=== PATIENT | male | born 1935 | race Caucasian/White ===

== ENCOUNTER 2019-05-28 14:22 | Inpatient (IN) | payer MEDICARE, OTHER ==
[~2019-05-28] VITALS: Ht 167.6 cm; Wt 60.3 kg
[~2019-05-28 14:22] MED LIST: ALPR0.25 PO; ASPI-1169 PO; ATOR80TA PO; CLOP75TA15 PO; FERR325T24 PO; PANT40TA2 PO
--- NOTE | 2019-05-28 14:36 | NUR ---
[facility] CALLED, SPOKE WITH DIDIER PINTO, CODE STEMI CALLED BY DR COULTER
[2019-05-28] MEDS ORDERED: ASPIRIN 81 MG TAB.CHEW ONE ×2 (14:37→14:49)
[2019-05-28] MEDS ORDERED: NITROGLYCERIN 0.4 MG/TAB BOTTLE ONE (14:38)
[2019-05-28] MEDS ORDERED: RIVA10TA PO (14:39)
[2019-05-28] MEDS ORDERED: MULT-24 PO (14:39)
[2019-05-28] MEDS ORDERED: ALPR0.5T8 PO (14:39)
[2019-05-28] MEDS ORDERED: ALPR0.255 PO (14:39)
[2019-05-28] MEDS ORDERED: ONDANSETRON HCL/PF 4 MG/2 ML VIAL ONE (14:44)
[2019-05-28 14:45] LABS: BASOPHILS # (AUTO) 0.1 /CMM (0.0-0.2); BASOPHILS % (AUTO) 0.8 % (0.0-2.0); EOSINOPHILS % (AUTO) 1.4 % (0.0-6.0); HEMATOCRIT 53 % (39-51); HEMOGLOBIN 18.4 g/dL (13.5-17.5); LYMPHOCYTES % (AUTO) 40.6 % (20.0-44.0); MEAN CORPUSCULAR HGB CONC 35 g/dl (31.0-36.0); MEAN CORPUSCULAR VOLUME 94 fL (80-96); MONOCYTES # (AUTO) 0.9 /CMM (0.1-1.30); MONOCYTES % (AUTO) 12.5 % (2.0-12.0); NEUTROPHILS # (AUTO) 3.3 /CMM (1.8-8.9); NEUTROPHILS % (AUTO) 44.7 % (43.0-81.0); PLATELET COUNT (AUTO) 117 /CMM (150-450); WHITE BLOOD COUNT (AUTO) 7.4 K/uL (4.3-11.0)
--- NOTE | 2019-05-28 14:45 | NUR ---
[facility] RECIEVED FAX FOR CODE STEMI
--- NOTE | 2019-05-28 14:49 | NUR ---
PER [facility] RN, PRODUCE WRAPPER FELICITY MARSH PAGED, AWAITING CALL BACK Addendum: 05/28/19 at [address] FLORIAN
[2019-05-28 14:54] LABS: CARBON DIOXIDE 28 mmol/L (21-32); CHLORIDE 103 mmol/L (98-107); CREATININE 1.3 mg/dL (0.6-1.3); GLUCOSE 131 mg/dL (74-106); POTASSIUM 3.7 mmol/L (3.5-5.1); SODIUM SERUM 141 mmol/L (136-145); UREA NITROGEN, BLOOD 26 mg/dL (7-18)
--- NOTE | 2019-05-28 14:55 | NUR ---
DR COULTER SPEAKING WITH DR FLORIAN
[2019-05-28 15:00] LABS: ALANINE AMINOTRANSFERASE 19 U/L (12-78); ALBUMIN 3.9 g/dL (3.4-5.0); ALKALINE PHOSPHATASE 49 U/L (46-116); ASPARTATE AMINOTRANSFERASE 30 U/L (15-37); BILIRUBIN,DIRECT 0.2 mg/dL (0.0-0.2); BILIRUBIN,TOTAL 0.8 mg/dL (0.2-1.0); TOTAL PROTEIN, SERUM 6.9 g/dL (6.4-8.2)
[2019-05-28] MEDS ORDERED: NITROGLYCERIN 0.4 MG/TAB BOTTLE SL ONE (15:00)
[2019-05-28] MEDS ORDERED: ASPIRIN 325 MG TABLET PO ONE (15:00)
[2019-05-28] MEDS ORDERED: ONDANSETRON HCL/PF - ER 4 MG/2 ML VIAL IV ONE (15:00)
[2019-05-28 15:18] LABS: CALCIUM, SERUM 9.8 mg/dL (8.5-10.1)
--- NOTE | 2019-05-28 15:29 | NUR ---
CALLED DR. FABIANO PADRON [phone] OPTION 2, 2. PAGED.
--- NOTE | 2019-05-28 15:58 | NUR ---
PER DR PADRON ANSWERING SERVICE, WILL ATTEMPT TO REACH DR PADRON CELL PHONE AND CALL BACK
[2019-05-28 16:04] LABS: BAND % (MANUAL) 2 % (0.0-5.0); EOSINOPHILS % (MANUAL) 1 % (0-4); MONOCYTES % (MANUAL) 11 % (0-11.0); NEUTROPHILS % (MANUAL) 44 (42-76)
[2019-05-28 16:05] LABS: LYMPHOCYTES % (MANUAL) 42 % (16-48)
--- NOTE | 2019-05-28 16:34 | NUR ---
CALLED NURSING SUP FOR TELE BED
--- NOTE | 2019-05-28 16:38 | NUR ---
DR. TSANG RECEIVED A CALL BACK. Addendum: 05/28/19 at 1648 by ROALCANCES CORRECTION: RECEIVED A CALL BACK FROM DR. TSANG
--- NOTE | 2019-05-28 16:39 | NUR ---
REPEAT TROPONIN LEVEL.
--- NOTE | 2019-05-28 16:49 | NUR ---
CALLED FOOD SAFETY DIRECTOR FOR A BED.
[2019-05-28] MEDS ORDERED: MAG HYDROX/AL HYDROX/SIMETH 30 ML UDC ONE (17:33)
[2019-05-28] MEDS ORDERED: LIDOCAINE VISCOUS 2% UD 15 ML UDC ONE (17:33)
--- NOTE | 2019-05-28 17:45 | NUR ---
GIVEN REPORT TO JATIN PINTO FOR NAZ.
[2019-05-28] MEDS ORDERED: ALPRAZOLAM 0.5 MG TABLET PO SCH (18:00)
[2019-05-28] MEDS ORDERED: LIDOCAINE VISCOUS 2% UD 15 ML UDC MM ONE (18:00)
[2019-05-28] MEDS ORDERED: MAG HYDROX/AL HYDROX/SIMETH 30 ML UDC PO ONE (18:00)
--- NOTE | 2019-05-28 19:25 | NUR ---
ADMISSION NOTES: RECEIVED REPORT FROM JATIN PINTO. PT BROUGHT TO THE UNIT VIA GURNEY. PLACED COMFORTABLE IN BED. PT IS A/O X4, ON RA RESPIRATIONS EVEN AND UNLABORED. PT DENIES ANY CHEST PAIN, DIZZINESS, OR LIGHT HEADEDNESS. PT HAS 2 IV ACCESS IN PLACED, BOTH PATENT AND FLUSHING WELL, ON HL. PLACED ON TELE MONITORING, SINUS RHYTHM HR 79. ASSISTED TO BATHROOM, VOIDED FREELY. PT REFUSED USING URINAL, STATED HE'S NOT COMFORTABLE. INVENTORY OF BELONGINGS COMPLETED, PT USES BILATERAL HEARING AID. PROVIDED WITH CONTAINER WITH PT'S NAME ON IT/ID STICKER PLACED AT BED SIDE, PT STATED HE NORMALLY REMOVE THE IT PRIOR TO SLEEPING. VS TAKEN AND RECORDED. ORIENTED PT TO USE OF CALL LIGHT, HOURLY ROUNDING, POLICY AND VISITING HOURS. PT REQUESTED FOR NO PHONE CALLS TONIGHT HE WOULD LIKE TO SLEEP, STATED HE'S TIRED. UPON SKIN ASSESSMENT, NOTED DTI WITH NON BLANCHABLE REDNESS, ON TAILBONE AREA AND SACRAL, NOTED DRY SCAB ON SIDES, PT REFUSED FOR PHOTO TAKING AND TREATMENT, OFFERED MEPILEX, BUT REFUSED. EDUCATE PT WE HAVE WOUND CARE TEAM WHICH CAN PRESCRIBED NECESSARY TX, BUT PT REFUSED STATED HE GOT THIS FROM SITTING/LAYING LONG PERIODS OF TIME, AND IT'S NOT A CONCERN FOR HIM OF THE MOMENT. SAFETY PRECAUTIONS FOR FALL INITIATED, CALL LIGHT IN REACH, WILL CONTINUE MONITORING PT.
--- NOTE | 2019-05-28 19:32 | NUR ---
PT TRASNFERRED PER ACLS PROTOCOL
[2019-05-28 20:00] VITALS: BP 119/73
--- NOTE | 2019-05-28 20:26 | NUR ---
ADMIN OF XANAX AT 2025, AND NON ADMIN OF LIPITOR: PT ARRIVED TO [facility] AT 1925,PT STATED HE WOULD LIKE TO GET HIS XANAX NOW, HE NORMALLY TAKE IT AT NIGHT BEFORE HE GOES TO BED. STATED HE'S VERY TIRED AND WOULD LIKE TO SLEEP NOW. PER PT, HE TOOK ALL HIS AM MEDS THIS MORNING, INCLUDING LIPITOR. PT CLAIMED HE TOOK LIPITOR 80 MG EVERY MORNING.
--- NOTE | 2019-05-28 20:29 | NUR ---
RN NOTES: NOTED SACRAL AND TAILBONE REDNESS, NON BLANCHABLE, CRUSTED SCAB NOTED ON RIGHT BUTTOCKS AREA, PT REFUSED FOR PHOTOS
--- NOTE | 2019-05-28 21:25 | NUR ---
rn notes: notified dr gill regarding admitting orders, t/o to start pt on regular diet, and he will place orders. t/o read back, verified, carried out.
[2019-05-28] MEDS ORDERED: ATORVASTATIN 40 MG TABLET PO SCH (22:00)
[2019-05-28] MEDS ORDERED: IV NS 0.9% 1,000 ML IV PRN (23:10)
[2019-05-28] MEDS ORDERED: ONDANSETRON HCL/PF 4 MG/2 ML VIAL IVP PRN (23:30)
[2019-05-28] MEDS ORDERED: ACETAMINOPHEN 325 MG TABLET PO PRN (23:30)
[2019-05-28] MEDS ORDERED: MAG HYDROX/AL HYDROX/SIMETH 30 ML UDC PO PRN (23:30)
[2019-05-28] MEDS ORDERED: MAGNESIUM HYDROXIDE 30 ML UDC PO PRN (23:30)
[2019-05-28] MEDS ORDERED: Z GUARD REMEDY 2 OZ OINT TP PRN (23:30)
[2019-05-29] VITALS: BP 128/74
--- NOTE | 2019-05-29 01:01 | NUR ---
RN NOTES: PT CALLED STATED XANAX HE TOOK LAST NIGHT DOESNT HELP, HE'S STILL, OPT REQUESTING TO HAVE ANOTHER DOSE AT THIS TIME, EXPLAIN TO PT THAT BECAUSE HE TOOK A DOSE LAST NIGHT, MOST LIKELY HE COULDN'T GET ADDITIONAL DOSE AT THIS TIME, FOR HIS SAFETY AND THAT ITS LONG ACTING. BUT PT INSISTED, CONTACTED ACCOUNT MANAGEMENT ASSISTANT MD DR ROMERO, RELAYED THE SITUATION, PER MD NO ADDITIONAL DOSE FOR TONIGHT.
[2019-05-29 04:00] VITALS: BP 145/84
--- NOTE | 2019-05-29 06:38 | NUR ---
RN CLOSING NOTES: PT DENIES ANY CHEST PAIN OR DISCOMFORT THROUGHOUT THE SHIFT. IV ACCESS REMAINS PATENT AND FLUSHING WELL, INFUSING WITH IVF ORDERED. REMAINS ON FALL RISK. TELE MONITORING, SINUS RHYTHM HR 73. BILATERAL HEARING AID REMAINS IN CONTAINER AT BED SIDE. VS REMAINS STABLE, NEEDS ATTENDED. SAFETY PRECAUTIONS FOR FALL REMAINS ENGAGED, CALL LIGHT IN REACH, WILL ENDORSE TO DAY RN FOR CONTINUITY OF CARE.
[2019-05-29 07:04] LABS: BASOPHILS % (AUTO) 0.5 % (0.0-2.0); EOSINOPHILS % (AUTO) 0.8 % (0.0-6.0); HEMATOCRIT 50 % (39-51); LYMPHOCYTES # (AUTO) 1.1 /CMM (0.8-4.8); LYMPHOCYTES % (AUTO) 16.4 % (20.0-44.0); MEAN CORPUSCULAR HGB CONC 34 g/dl (31.0-36.0); MEAN CORPUSCULAR VOLUME 94 fL (80-96); MONOCYTES # (AUTO) 0.8 /CMM (0.1-1.30); MONOCYTES % (AUTO) 11.8 % (2.0-12.0); NEUTROPHILS # (AUTO) 4.7 /CMM (1.8-8.9); NEUTROPHILS % (AUTO) 70.5 % (43.0-81.0); PLATELET COUNT (AUTO) 102 /CMM (150-450); WHITE BLOOD COUNT (AUTO) 6.6 K/uL (4.3-11.0)
[2019-05-29 07:38] LABS: ALBUMIN 3.1 g/dL (3.4-5.0); BILIRUBIN,TOTAL 0.8 mg/dL (0.2-1.0); CALCIUM, SERUM 8.6 mg/dL (8.5-10.1); MAGNESIUM 2.1 mg/dL (1.8-2.4); PHOSPHORUS 2.8 mg/dL (2.5-4.9); POTASSIUM 3.8 mmol/L (3.5-5.1); TOTAL PROTEIN, SERUM 5.7 g/dL (6.4-8.2)
[2019-05-29 07:43] LABS: THYROID STIMULATING HORMONE 0.519 uIU/mL (0.358-3.74)
--- NOTE | 2019-05-29 07:45 | NUR ---
WAREHOUSE EXAMINER NOTES ON TELE MONITORING SR: 78
--- NOTE | 2019-05-29 07:45 | NUR ---
AIRCRAFT DELIVERY CHECKER OPENING NOTES RECEIVED PATIENT IN BED ASLEEP, AROUSABLE TO VERBAL AND TACTILE STIMULI. HOB ELEVATED. NO SOB. DENIES ANY C/O PAIN NOR DISCOMFORT. DENIES ANY C/O CHEST PAIN. BILATERAL HEARING AIDS IN PLACE. LAC # 18 SL INTACT AND PATENT, RAC # 18 INTACT AND PATENT INFUSING NS @ 75ML/HR OSIRIS WELL. BED IN LOWEST POSITION, LOCKED. CALL LIGHT WITHIN REACH. ABLE TO VERBALIZE NEEDS.
[2019-05-29 08:00] VITALS: BP 139/83
[2019-05-29] MEDS ORDERED: IV NS 0.9% 1,000 ML IV ONE (08:30)
[2019-05-29] MEDS: MULTIVITAMINS,THERAGRAN 1 UDTAB TABLET PO SCH ×2 (08:55→09:00)
[2019-05-29] MEDS: PANTOPRAZOLE 40 MG TABLET.DR PO SCH ×2 (08:55→09:00)
[2019-05-29] MEDS: ALPRAZOLAM 0.25 MG TABLET PO SCH ×2 (08:55→09:00)
[2019-05-29] MEDS ORDERED: RIVAROXABAN 10 MG TABLET PO SCH (09:00)
[2019-05-29] MEDS ORDERED: POTASSIUM CHLORIDE 20 MEQ TAB.PRT.SR PO SCH (09:00)
[2019-05-29] MEDS ORDERED: FERROUS SULFATE (325 MG) 325 MG/TAB TABLET PO SCH (09:00)
[2019-05-29] MEDS ORDERED: CLOPIDOGREL BISULFATE 75 MG TABLET PO SCH (09:00)
--- NOTE | 2019-05-29 11:43 | NUR ---
MS RN NOTES ALERT AND ORIENTED X4. NO SOB OBSERVED. DENIES ANY C/O PAIN NOR DISCOMFORT. DENIES C/O CHEST PAIN. PATIENT VERBALIZES UNDERSTANDING OF MEDICAL CONDITION AND CURRENT TREATMENT PLAN. PATIENT WITH DISCHARGE ORDER. DISCHARGE INSTRUCTIONS, EDUCATION AND PACKET GIVEN TO PATIENT. IV ACCESS CATHETER REMOVED WITH CATHETER TIP INTACT AND GAUZE DRESSING IN PLACE. ALL BELONGINGS ACCOUNTED FOR. AMBULATORY WITH STEAD GAIT. PATIENT AMBULATED AROUND UNIT PRIOR TO LEAVING, OSIRIS WELL. PATIENT LEFT IN STABLE CONDITION.
== END 2019-05-29 14:35 | disposition home or self-care (01) | DRG 392 ==
LOC: ER 14:35 → TELE 18:52 → MED 05-29 09:15
PROVIDERS: ADMIT Nurse Practitioner Acute Care; ATTEND Family Medicine
DX: K21.9 Gastro-esophageal reflux disease without esophagitis (principal); E86.9 Volume depletion, unspecified; E78.5 Hyperlipidemia, unspecified; F41.9 Anxiety disorder, unspecified; I10 Essential (primary) hypertension; I25.10 Atherosclerotic heart disease of native coronary artery without angina pectoris; M19.90 Unspecified osteoarthritis, unspecified site; Z87.891 Personal history of nicotine dependence; Z87.11 Personal history of peptic ulcer disease; Z95.5 Presence of coronary angioplasty implant and graft; Z95.2 Presence of prosthetic heart valve; F10.21 Alcohol dependence, in remission; Z79.01 Long term (current) use of anticoagulants; M48.8X2 Other specified spondylopathies, cervical region
CPT/HCPCS: 36415; 71045-TC; 80048-TC; 80053-TC; 80061-TC; 80076-TC; 82962-TC; 83540-TC; 83735-TC; 84100-TC; 84443-TC; 84484-TC; 85025-TC; 85730-TC; 87081-TC; 93307-TC; G0378; J2405; J7030

== ENCOUNTER 2021-06-10 08:11 | Inpatient (IN) | payer MEDICARE, OTHER ==
[~2021-06-10] VITALS: Ht 167.6 cm; Wt 63.5 kg
[~2021-06-10 08:11] MED LIST changes: -ALPR0.25 PO; +ALPR0.255 PO; +ALPR0.5T8 PO; -ASPI-1169 PO; +MULT-24 PO; +RIVA10TA PO
--- NOTE | 2021-06-10 08:23 | NUR ---
TO ER BED 7, C/O SHORTNESS OF BREATH BUT SATTING AT 100% IN ROOM AIR, BREATHING EVEN AND NON LABORED, CHANGED INTO A GOWN AND ATTACHED TO MONITOR
[2021-06-10 08:48] LABS: BASOPHILS % (AUTO) 0.9 % (0.0-2.0); EOSINOPHILS % (AUTO) 2.4 % (0.0-6.0); HEMATOCRIT 31 % (39-51); HEMOGLOBIN 9.9 g/dL (13.5-17.5); LYMPHOCYTES # (AUTO) 1.5 K/uL (0.8-4.8); LYMPHOCYTES % (AUTO) 30.7 % (20.0-44.0); MEAN CORPUSCULAR HGB CONC 32 g/dl (31.0-36.0); MEAN CORPUSCULAR VOLUME 89 fL (80-96); MONOCYTES # (AUTO) 0.6 K/uL (0.1-1.30); MONOCYTES % (AUTO) 12.7 % (2.0-12.0); NEUTROPHILS # (AUTO) 2.7 K/uL (1.8-8.9); NEUTROPHILS % (AUTO) 53.3 % (43.0-81.0); PLATELET COUNT (AUTO) 213 K/uL (150-450); RED BLOOD CELL COUNT(AUTO) 3.45 MIL/uL (4.5-6.0)
[2021-06-10] MEDS ORDERED: METR250T36 PO (08:53)
[2021-06-10] MEDS ORDERED: DOXY100T2 PO (08:53)
[2021-06-10] MEDS ORDERED: MULT-447 PO (08:53)
[2021-06-10] MEDS ORDERED: PANT40TA49 PO (08:53)
--- NOTE | 2021-06-10 08:53 | NUR ---
MOVE SHEET SUBMITTED AND CALLED FOR TELE BED.
[2021-06-10 08:58] LABS: CALCIUM, SERUM 8.6 mg/dL (8.5-10.1); CREATININE 1.3 mg/dL (0.6-1.3); POTASSIUM 4.3 mmol/L (3.5-5.1)
--- NOTE | 2021-06-10 09:00 | NUR ---
COVID SWAB DONE AND SENT TO LAB
[2021-06-10 09:11] LABS: ALBUMIN 3.4 g/dL (3.4-5.0); BILIRUBIN,DIRECT 0.1 mg/dL (0.0-0.2); BILIRUBIN,TOTAL 0.5 mg/dL (0.2-1.0); TOTAL PROTEIN, SERUM 6.2 g/dL (6.4-8.2)
--- NOTE | 2021-06-10 09:46 | NUR ---
CONTACT# OF FRIEND - LEWIS MARQUEZ
[2021-06-10] MEDS ORDERED: IV NS 0.9% 250 ML IV ONE (10:03)
[2021-06-10] MEDS ORDERED: IOHEXOL-350 100 ML VIAL IV ONE (10:03)
[2021-06-10] MEDS ORDERED: CT SWABBABLE VALVE TRANS SET 1 EA INFUS.SET MC ONE (10:03)
--- NOTE | 2021-06-10 10:39 | NUR ---
GOT BED 307
[2021-06-10] MEDS ORDERED: ASPIRIN 81 MG TAB.CHEW PO STA (10:46)
[2021-06-10] MEDS ORDERED: ASPIRIN 81 MG TAB.CHEW ONE (10:49)
--- NOTE | 2021-06-10 10:53 | NUR ---
REPORT GIVEN TO MING PINTO FOR NAZ
--- NOTE | 2021-06-10 11:54 | NUR ---
APARTMENT ASSISTANT MANAGER NOTE RECEIVED PATIENT VIA DIANE FROM EMERGENCY DEPARTMENT. PATIENT IS A/OX4. PATIENT IS HARD OF HEARING. PATIENT IS BREATHING EVENLY AND NONLABORED ON ROOM AIR. NO SIGNS OF DISTRESS NOTED. VITALS ARE BP 132/78, HR 77 TEMP 97.7, O2 SAT 95%. PATIENT WAS PLACED ON TELE MONITOR SHOWING NSR @ THIS TIME. MD MADE AWARE OF PATIENTS ARRIVAL. PATIENT WAS ABLE TO SAFELY AMBULATE TO BED. PATIENT'S SKIN C/D/I. PATIENT HAS IV ACCESS ON LAC # 18 AND RFA # 20, BOTH PATENT AND INTACT. PATIENT DOES NOT COMPLAIN OF ANY PAIN AT THIS TIME. PATIENT'S BELONGINGS ACCOUNTED FOR. PATIENT WAS ORIENTED TO THE ROOM AND HOW TO USE THE CALL LIGHT. SAFETY MEASURES IN PLACE, BED LOW LOCKED AND CALL LIGHT WITHIN REACH. WILL CONTINUE TO MONITOR
[2021-06-10] MEDS: DILTIAZEM HCL CD 240 MG PO SCH (12:04)
[2021-06-10] MEDS ORDERED: ACETAMINOPHEN 325 MG TABLET PO PRN (13:00)
[2021-06-10] MEDS ORDERED: Z GUARD REMEDY 2 OZ OINT TP PRN (13:00)
[2021-06-10] MEDS: ALPRAZOLAM 0.25 MG TABLET PO SCH ×2 (13:00→20:21)
[2021-06-10] MEDS ORDERED: HEPARIN INFUSION/D5W 500 ML IV PRN (13:00)
[2021-06-10] MEDS ORDERED: ONDANSETRON HCL/PF 4 MG/2 ML VIAL IVP PRN (13:00)
[2021-06-10] MEDS ORDERED: HEPARIN SODIUM, PORCINE 5000 UNITS/1 ML VIAL IV ONE (13:30)
--- NOTE | 2021-06-10 13:50 | NUR ---
RN NOTE HEPARIN DRIP STARTED @ 1150 UNITS/HR PER PROTOCOL, WILL DRAW PTT @ 1950. WILL CONTINUE TO MONITOR
[2021-06-10] MEDS: HEPARIN INFUSION/D5W 500 ML IV PRN (13:52)
[2021-06-10 16:00] VITALS: BP 109/63
[2021-06-10] MEDS ORDERED: ALPRAZOLAM 0.25 MG TABLET PO SCH (17:00)
--- NOTE | 2021-06-10 18:31 | NUR ---
RN CLOSING NOTE PATIENT RESTING IN BED. PATIENT IS A/OX4. PATIENT IS BREATHING EVENLY AND NONLABORED ON ROOM AIR. NO SIGNS OF DISTRESS NOTED. PATIENT WAS PLACED ON TELE MONITOR SHOWING NSR @ THIS TIME. PATIENT'S SKIN C/D/I. PATIENT HAS IV ACCESS ON LAC # 18 AND RFA # 20, BOTH PATENT AND INTACT. PATIENT DOES NOT COMPLAIN OF ANY PAIN AT THIS TIME. SAFETY MEASURES IN PLACE, BED LOW LOCKED AND CALL LIGHT WITHIN REACH. WILL ENDORSE TO ONCOMING SHIFT
--- NOTE | 2021-06-10 19:25 | NUR ---
TELE/RN OPENING NOTE RECEIVED PATIENT RESTING IN BED. AWAKE, ALERT AND ORIENTED X 4. ABLE TO MAKE NEEDS KNOWN. DENIES PAIN AT THIS TIME. CONTINUES ON ROOM AIR WITH NO S/SX OF RESPIRATORY DISTRESS NOTED. IV ACCESS TO RIGHT FOREARM #20G AND LEFT AC #18G INTACT AND PATENT. CONTINUES ON HEPARIN DRIP AT 1150U/HR. NEXT PTT LAB DRAW AT 19:50. NO S/SX OF BLEEDING. CALL LIGHT WITHIN REACH. ASPIRATION, FALL AND SAFETY PRECAUTIONS MAINTAINED. WILL CONTINUE TO MONITOR.
[2021-06-10 20:00] VITALS: BP 100/47
--- NOTE | 2021-06-10 21:21 | NUR ---
medical assistant internal medicine notes Received a critical lab from [facility] that Pt PTT is greater than 170. Primary nurse is aware and informed. Charge nurse is aware and informed. Will continue to monitor.
[2021-06-10] MEDS: ATORVASTATIN 40 MG TABLET PO SCH (22:18)
--- NOTE | 2021-06-10 22:18 | NUR ---
automobile and property underwriter notes Spoke and notified MD regarding Pt PTT greater than 170. MD ordered to follow hospital protocol and based on Pt's weight. Notified and informed Primary nurse. Charge nurse is aware and informed. Order carried out.
--- NOTE | 2021-06-10 22:30 | NUR ---
TELE/RN NOTE PATIENTS HEPARIN DRIP ADJUSTED TO 950U/HR PER HOSPITAL PROTOCOL. RESTARTED AT 22:30. PATIENT CURRENTLY SLEEPING IN BED. IV SITE CLEAN, DRY AND INTACT. WILL CONTINUE TO MONITOR.
[2021-06-11] VITALS: BP 100/57
[2021-06-11 04:00] VITALS: BP 104/58
[2021-06-11 04:52] LABS: EOSINOPHILS % (AUTO) 3.3 % (0.0-6.0); HEMATOCRIT 24 % (39-51); HEMOGLOBIN 8.1 g/dL (13.5-17.5); LYMPHOCYTES % (AUTO) 29.2 % (20.0-44.0); MEAN CORPUSCULAR HGB CONC 34 g/dl (31.0-36.0); MEAN CORPUSCULAR VOLUME 88 fL (80-96); MONOCYTES # (AUTO) 0.5 K/uL (0.1-1.30); MONOCYTES % (AUTO) 14.6 % (2.0-12.0); NEUTROPHILS # (AUTO) 1.8 K/uL (1.8-8.9); NEUTROPHILS % (AUTO) 51.9 % (43.0-81.0); PLATELET COUNT (AUTO) 173 K/uL (150-450); RED BLOOD CELL COUNT(AUTO) 2.72 MIL/uL (4.5-6.0); WHITE BLOOD COUNT (AUTO) 3.6 K/uL (4.3-11.0)
[2021-06-11 05:06] LABS: ALBUMIN 2.5 g/dL (3.4-5.0); BILIRUBIN,TOTAL 0.5 mg/dL (0.2-1.0); CALCIUM, SERUM 7.9 mg/dL (8.5-10.1); PHOSPHORUS 3.6 mg/dL (2.5-4.9); POTASSIUM 4.1 mmol/L (3.5-5.1); TOTAL PROTEIN, SERUM 4.9 g/dL (6.4-8.2)
--- NOTE | 2021-06-11 05:35 | NUR ---
TELE/RN NOTE RECEIVED CALL FROM LAB WITH CRITICAL LAB VALUE PTT 105.4. HEPARIN DRIP STOPPED PER PROTOCOL X 1HR THEN WILL DECREASE BY 200U/HR. NEXT PTT LAB DRAW IN 6HRS @ APPROX. 11:30.
--- NOTE | 2021-06-11 06:30 | NUR ---
TELE/RN CLOSING NOTE PATIENT CURRENTLY RESTING IN BED. AWAKE, ALERT AND ORIENTED X 4. ABLE TO MAKE NEEDS KNOWN. DENIES PAIN AT THIS TIME. CONTINUES ON ROOM AIR WITH NO S/SX OF RESPIRATORY DISTRESS NOTED. IV ACCESS TO RIGHT FOREARM #20G AND LEFT AC #18G INTACT AND PATENT. CONTINUES ON HEPARIN DRIP AT 750U/HR. NEXT PTT LAB DRAW AT 11:30. NO S/SX OF BLEEDING NOTED. CALL LIGHT WITHIN REACH. ASPIRATION, FALL AND SAFETY PRECAUTIONS MAINTAINED. WILL ENDORSE PLAN OF CARE TO ONCOMING SHIFT.
--- NOTE | 2021-06-11 06:35 | NUR ---
TELE/RN NOTE RESTARTED HEPARIN DRIP AT 750U/HR. PATIENT CURRENTLY SLEEPING IN BED. IV ACCESS IS CLEAN, DRY AND INTACT. NO S/SX OF BLEEDING NOTED. NEXT PTT IS AT 11:30A.
[2021-06-11] MEDS ORDERED: PANTOPRAZOLE 40 MG TABLET.DR PO SCH (07:30)
[2021-06-11 08:00] VITALS: BP 104/60
[2021-06-11] MEDS: HEPARIN INFUSION/D5W 500 ML IV PRN ×2 (08:55→13:46)
[2021-06-11] MEDS: DILTIAZEM HCL CD 240 MG PO SCH (09:00)
[2021-06-11] MEDS: FERROUS SULFATE (325 MG) 325 MG/TAB TABLET PO SCH (11:28)
[2021-06-11] MEDS: MULTIVITAMINS,THERAGRAN 1 UDTAB TABLET PO SCH (11:29)
[2021-06-11 12:00] VITALS: BP 100/56
--- NOTE | 2021-06-11 12:30 | NUR ---
PTT DRAWN AT 1135 IS 62.4 SECONDS,SO NO CHANGE IN HEPARIN DOSE.NEXT PTT DRAW 10/13 AM.
--- NOTE | 2021-06-11 12:40 | NUR ---
LT. ARM IV LEAKING AND REMOVED.
[2021-06-11] MEDS: PANTOPRAZOLE 40 MG VIAL IV SCH ×2 (12:55→18:13)
[2021-06-11] MEDS: ALPRAZOLAM 0.25 MG TABLET PO SCH ×2 (13:36→21:02)
[2021-06-11 14:46] LABS: HEMOGLOBIN 8.2 g/dL (13.5-17.5)
--- NOTE | 2021-06-11 15:30 | NUR ---
RT. FOREARM IV INFILTRATED AND REMOVED.NEW START IN RT. FOREARM #21 ANGIO.PT. TOLERATED WELL.ICE TO FORMER IV SITE.
--- NOTE | 2021-06-11 15:45 | NUR ---
ice pack to infiltrated iv site rt. arm.
[2021-06-11 16:00] VITALS: BP 112/60
--- NOTE | 2021-06-11 18:00 | NUR ---
no change in status.
--- NOTE | 2021-06-11 19:30 | NUR ---
APPLICATION PACKAGER OPENING NOTES PATIENT CURRENTLY AWAKE IN BED RESTING. PATIENT'S ALERT AND ORIENTED X 4. PATIENT'S STABLE ON ROOM AIR. PATIENT'S CONNECTED TO A TELE MONITOR WITH NO CARDIAC DISTRESS NOTED. IV ACCESS NOTED ON RIGHT FOREARM GAUGE #21G RUNNING A HEPARIN DRIP AT 15ML/HOUR. PATIENT'S IN NO ACUTE DISTRESS AT THIS TIME. SAFETY MEASURES IN PLACE: BED LOCKED, BED ALARM ON, SIDE RAILS UPX3, AND CALL LIGHT WITHIN REACH OF THE PATIENT. WILL CONTINUE TO MONITOR THE PATIENT.
[2021-06-11 20:00] VITALS: BP 114/58
[2021-06-11] MEDS: ATORVASTATIN 40 MG TABLET PO SCH (21:02)
[2021-06-11 22:38] LABS: HEMOGLOBIN 7.9 g/dL (13.5-17.5)
[2021-06-12] VITALS: BP 117/61
[2021-06-12 04:00] VITALS: BP 116/66
[2021-06-12 06:20] LABS: HEMOGLOBIN 8.4 g/dL (13.5-17.5)
--- NOTE | 2021-06-12 07:23 | NUR ---
CHILD DAY CARE TEACHER CLOSING NOTES PATIENT'S CURRENTLY SLEEPING IN BED. PATIENT'S ALERT AND ORIENTED X 4. PATIENT'S STABLE ON ROOM AIR. PATIENT'S CONNECTED TO A TELE MONITOR WITH NO CARDIAC DISTRESS NOTED. IV ACCESS NOTED ON RIGHT FOREARM GAUGE #21G RUNNING A HEPARIN DRIP AT 15ML/HOUR. PATIENT'S IN NO ACUTE DISTRESS AT THIS TIME. SAFETY MEASURES IN PLACE: BED LOCKED, BED ALARM ON, SIDE RAILS UPX3, AND CALL LIGHT WITHIN REACH OF THE PATIENT. ENDORSED CARE TO THE DAY SHIFT NURSE.
--- NOTE | 2021-06-12 07:35 | NUR ---
TELE/RN OPENING NOTES RECEIVED PATIENT ON BED AWAKE ALERT AND ORIENTED X4. PATIENT IS ON ROOM AIR. PATIENT IN NO APPARENT RESPIRATORY DISTRESS NOTED. NO COMPLAINED OF PAIN NOTED AT THIS TIME. WILL CONTINUE TO MONITOR.
--- NOTE | 2021-06-12 07:43 | NUR ---
TELE/RN NOTES PTT 97.3 DR. MEDINA WAS AWARE NO NEW ORDER AT THIS TIME. WILL CONTINUE TO MONITOR.
[2021-06-12 08:00] VITALS: BP 128/77
[2021-06-12] MEDS ORDERED: APIX5TAB PO ×2 (08:24)
[2021-06-12] MEDS ORDERED: DILT240C88 PO (08:24)
[2021-06-12] MEDS ORDERED: PANT40TA2 PO (08:24)
[2021-06-12] MEDS: MULTIVITAMINS,THERAGRAN 1 UDTAB TABLET PO SCH (08:30)
[2021-06-12] MEDS: DILTIAZEM HCL CD 240 MG PO SCH (08:30)
[2021-06-12] MEDS: FERROUS SULFATE (325 MG) 325 MG/TAB TABLET PO SCH (08:30)
[2021-06-12] MEDS ORDERED: PANTOPRAZOLE 40 MG TABLET.DR PO SCH (09:00)
[2021-06-12] MEDS ORDERED: APIXABAN 5 MG TABLET PO SCH (09:00)
[2021-06-12 12:00] VITALS: BP 97/57
[2021-06-12] MEDS: ALPRAZOLAM 0.25 MG TABLET PO SCH (12:04)
[2021-06-12 16:13] VITALS: BP 126/64
--- NOTE | 2021-06-12 16:45 | NUR ---
RN NOTES PATIENT IS ALERT AND ORIENTEDX4. PATIENT IS ON ROOM AIR. PATIENT IN NO APPARENT RESPIRATORY DISTRESS NOTED. SEEN AND EXAMINED BY MD WITH ORDERS MADE AND CARRIED OUT. ALL DUE MEDICATIONS WAS GIVEN. DISCHARGED INSTRUCTIONS WAS GIVEN AND PATIENT VERBALIZED UNDERSTANDING. PATIENT LEFT THE HOSPITAL IN MEDICALLY STABLE CONDITION. HAT TRIMMER BY JOSE GERARDO VIA PRIVATE CAR.
== END 2021-06-12 16:45 | disposition home or self-care (01) | DRG 175 ==
LOC: ER 08:15 → TELE 10:42
PROVIDERS: ADMIT Nurse Practitioner Acute Care; ATTEND Internal Medicine
DX: I26.99 Other pulmonary embolism without acute cor pulmonale (principal); I21.A1 Myocardial infarction type 2; I50.32 Chronic diastolic (congestive) heart failure; G90.8 Other disorders of autonomic nervous system; I11.0 Hypertensive heart disease with heart failure; D63.8 Anemia in other chronic diseases classified elsewhere; E78.5 Hyperlipidemia, unspecified; F10.10 Alcohol abuse, uncomplicated; I25.10 Atherosclerotic heart disease of native coronary artery without angina pectoris; Z85.46 Personal history of malignant neoplasm of prostate; Z87.891 Personal history of nicotine dependence; Z95.2 Presence of prosthetic heart valve; Z20.822 Contact with and (suspected) exposure to COVID-19; Z79.01 Long term (current) use of anticoagulants; M19.90 Unspecified osteoarthritis, unspecified site; Z90.79 Acquired absence of other genital organ(s); Z95.5 Presence of coronary angioplasty implant and graft; Z79.02 Long term (current) use of antithrombotics/antiplatelets; K26.9 Duodenal ulcer, unspecified as acute or chronic, without hemorrhage or perforation
CPT/HCPCS: 36415; 71045-TC; 80048-TC; 80053-TC; 80061-TC; 80076-TC; 83735-TC; 83880; 84100-TC; 84484-TC; 85025-TC; 85027-TC; 85378-TC; 85610-TC; 85730-TC; 87081-TC; 93307-TC; 93970-TC; C9113; C9803; G0378; J1644; J7050; Q9967